=== PATIENT | female | born 1990 ===

== ENCOUNTER 2022-03-20 08:45 | Outpatient (RCR) | payer OTHER, SELFPAY ==
[2022-03-05 12:23] VITALS: BMI 22.3
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
--- NOTE | 2022-03-05 13:13 | PC.ADMIT ---
Patient is A 31 year old female who lives with her fiyasmani and her three children. She was referred to [facility] by [facility] crisis who evaluated patient after patient contacted crisis d/t increased sxs of depression with SI with multiple plans reporting thoughts to crash her car, overdose, or hang herself. Patient has no history of inpatient treatment. Patient reportedly tried to hang herself 3 months ago however stopped herself as she thought about her children. Patient reportedly moved to [place] from [facility] in May 2021 to be with her fiyasmani. Patient currently reports not having SI today. She does report having thoughts yesterday of not wanting to be here. She denied any plans to harm or kill herself. Patient reports that if she gets to that point she will reach out to crisis again. Reports protective factor are her children as she stated she does not want to do this to her children. Patient reports she needs help and that is why she is here. Patient presents with depressed mood and affect. She is alert and oriented x4. Medication reconciled with patient and patient's pharmacy. Patient is not on any psychotropic medication at this time. She has no providers.
--- NOTE | 2022-03-06 07:52 | PC.NURSE ---
case opened in treatment team
--- NOTE | 2022-03-13 11:13 | P.PNPSP_ITS ---
Subjective Subjective Date of Service: 03/13/22 Reason For Visit: unspecified depressive d/o Interim History: Patient seen in follow up Tolerating Lexapro and Seroquel. Will be one week on Lexapro Wednesday the Using Seroquel only at bedtime due to sedating effect--sleeping much better and no issues with waking in the morning Challenges related to childcare and not knowledgeable of community resources Anxiety related to not working and finances, hoping to get back to work soon Review of Systems Constitutional: Reports as per HPI and Reports no additional constitutional complaints Mental Status Exam Mental Status Exam Narrative: Well-developed, well-nourished female, in NAD. Appears stated age. No tics or tremors, no abnormal movements noted. No perceptual disturbances noted. Patient Appearance: Appropriate Patient Orientation: Person, Place, Time and Situation Level of Consciousness: Appropriate Patient Behavior: Appropriate, Cooperative and Good Eye Contact Mood Description: Depressed and Anxious Affect Description: Depressed and Anxious Patient Cognition Impaired: No Ability to Follow Directions: Good Speech Pattern: Appropriate Memory Description: Intact Hallucinations: None Delusions: Not Present Thought Process: Intact Thought Content: positive for Intact and positive for Suicidal Ideation (pasive, no intent/plan) Depressive Symptoms: Increased Anxiety, Increased Irritability, Difficulty Sleeping, Changes in Appetite (decreased), Crying Spells, Sleeping More Than Usual (Reports either sleeping too much or too little.), Loss of Int. in Activity, Hopelessness, Feelings of Guilt, Increased Fatigue, Thoughts of /Suicide and Loss of Energy Judgement: Good Diagnostics Vital Signs (24Hr): BMI result Body Mass Index 22.3 Assessment & Plan Assessment & Plan (1) Major depressive disorder, recurrent severe without psychotic features: Status: Acute Code(s): F33.2 - Major depressive disorder, recurrent severe without psychotic features Assessment and Plan: * continue medications as prescribed * encouraged to reach our to [facility] Rec dept regarding options for children over the summer * follow up PRN (2) Generalized anxiety disorder: Status: Acute Code(s): F41.1 - Generalized anxiety disorder Certification I certify that partial hospital treatment is medically necessary due to the symptoms and problems resulting from the patient's mental illness and the failure to treat the patient at the partial hospital level of care would likely result in the patient requiring inpatient psychiatric care which could not be prevented at a less intensive level of care. I spent minutes with the patient and/or on the patient floor today, greater than?50% of which was spent counseling/coordinating care. Discharge Plan Discharge Attending provider: Jimi Frost Medications: New escitalopram oxalate 10 mg tablet 10 mg PO DAILY 14 Days Qty: 14 0RF Rx Instructions: Take 1/2 tab for two days, then start one tab daily quetiapine [Seroquel] 25 mg tablet 25 mg PO BID PRN (Reason: anxiety) Qty: 28 0RF No Action albuterol sulfate 90 mcg/actuation Hfa Aerosol Inhaler 2 puff INHALATION Q4H PRN (Reason: Shortness Of Breath) Telehealth Telehealth Location of provider rendering services: practice address Location of patient: address on file Patient Identification confirmed using: Name, : Yes Telehealth method: video Patient verbally consented to treatment: Yes Patient verbally consented to billing insurance company: Yes Patient informed of any privacy concerns related to visit: Yes Minutes spent on Phone/Video with Pt.: 15
--- NOTE | 2022-03-16 14:31 | P.PNPSP_ITS ---
Subjective Subjective Date of Service: 03/16/22 Reason For Visit: unspecified depressive d/o Medical Problems Affecting Mental Status: No Interim History: Continues with some dysphoric mood, although feels she is improving. No SI, HI. No safety concerns. Finding quetiapine helpful at night. Finding groups helpful. Medication Compliance: Yes Side effects from medications: No Attending Groups: Yes Review of Systems Acute medical concerns: No Medical Review of Systems: unchanged Review of Systems Review of Systems Yes all other systems are reviewed and are negative Constitutional: Reports no additional constitutional complaints Mental Status Exam Mental Status Exam Narrative: Alert, oriented x3. NAD. Fully attentive and appropriate during encounter. Patient Appearance: Appropriate Patient Orientation: Person, Place, Time and Situation Level of Consciousness: Appropriate Patient Behavior: Appropriate, Cooperative and Good Eye Contact Mood Description: Depressed (Reports it is improving although still present.) Affect Description: Depressed Patient Cognition Impaired: No Ability to Follow Directions: Good Speech Pattern: Appropriate Memory Description: Intact Hallucinations: None Delusions: Not Present Thought Process: Intact Thought Content: positive for Intact Depressive Symptoms: Increased Anxiety, Crying Spells, Loss of Int. in Activity, Feelings of Guilt and Loss of Energy Judgement: Fair Diagnostics Vital Signs (24Hr): BMI result Body Mass Index 22.3 Assessment & Plan Assessment & Plan (1) Major depressive disorder, recurrent severe without psychotic features: Status: Acute Code(s): F33.2 - Major depressive disorder, recurrent severe without psychotic features Assessment and Plan: Reports some dysphoric mood, although overall beginning to improve. Patient states ?I am still waiting for the Lexapro to do it's thing . Denies any side effects. No SI/HI, no safety concerns. Reports she is finding groups helpful. (2) PTSD (post-traumatic stress disorder): Status: Acute Code(s): F43.10 - Post-traumatic stress disorder, unspecified (3) Cocaine use disorder, severe, in sustained remission: Status: Acute Code(s): F14.21 - Cocaine dependence, in remission Assessment and Plan: Patient attending [place] [facility] groups, finding them helpful. (4) Generalized anxiety disorder: Status: Acute Code(s): F41.1 - Generalized anxiety disorder Assessment and Plan: Patient utilizing p.r.n. quetiapine. Taking at night, as it makes her tired. Reports that her sleep is greatly improved with this, and anxiety has lessened. Patient has children in the home, as they are out of school. She does find this stressful, specially while attending [facility] program. We discussed options, she plans to go on [employer] website, regarding summer activities/camp. Plan 1. Continue with current medication regimen as prescribed. 2. Continue with current [facility] plan of care. 3. Follow-up as per protocol. Patient educated on: diagnosis, medication risk/benefits, substance abuse and therapeutic strategies Informed Consent: understands Reason for contiued partial hosp. stay Substantial Risk for: inability to function, rapid decompensation and med/psych decompensation Certification I certify that partial hospital treatment is medically necessary due to the symptoms and problems resulting from the patient's mental illness and the failure to treat the patient at the partial hospital level of care would likely result in the patient requiring inpatient psychiatric care which could not be prevented at a less intensive level of care. I spent minutes with the patient and/or on the patient floor today, greater than?50% of which was spent counseling/coordinating care. Discharge Plan Discharge Attending provider: Jimi Frost Additional Instructions: intake N 03/23/22 at 11am with Eloise Frye [facility] Medications: New escitalopram oxalate 10 mg tablet 10 mg PO DAILY 14 Days Qty: 14 0RF Rx Instructions: Take 1/2 tab for two days, then start one tab daily quetiapine [Seroquel] 25 mg tablet 25 mg PO BID PRN (Reason: anxiety) Qty: 28 0RF No Action albuterol sulfate 90 mcg/actuation Hfa Aerosol Inhaler 2 puff INHALATION Q4H PRN (Reason: Shortness Of Breath) Stand Alone Forms: Patient Portal Discharge page Telehealth Telehealth Location of provider rendering services: practice address Location of patient: address on file Patient Identification confirmed using: Name, : Yes Telehealth method: video Patient verbally consented to treatment: Yes Patient verbally consented to billing insurance company: Yes Patient informed of any privacy concerns related to visit: Yes Minutes spent on Phone/Video with Pt.: 15
--- NOTE | 2022-03-20 10:01 | PC.NURSE ---
Patient is scheduled for a routine discharge today. Stated she is feeling better, less depressed and reports being more active, taking care of house hold duties etc. Patient denied SI or thoughts to harm herself. Patient asked for help finding a PCP who takes her insurance [facility] plan. Patient stated she called all PCP's listed on the insurance website and was not able to find a PCP. I called over 20 PCP's listed on the insurance website as well and was not able to find a PCP for the patient as the majority of the PCP's offices listed stated they did not take the insurance or were not taking on new patient's. I called [facility] Financial Counselor and spoke to Dania Galan. She stated to have the patient call her and she will work with her to call [employer] and ask for a special enrollment period as patient may need to change insurance carriers if she is not able to get a PCP with her current insurance carrier. I explained the information to Maritza who was happy to get help with this process. Dania Galan number given to patient.
--- NOTE | 2022-03-20 15:00 | HO.PHPPROGNO ---
Subjective Subjective Date of Service: 03/20/22 Reason For Visit: unspecified depressive d/o Medical Problems Affecting Mental Status: No Interim History: Reports improved mood, states ?although not 100% yet ?. Continues taking prescribed medications without issue. No SI/HI, no safety concerns. Feels ready for discharge from [facility] today. Plans to return to work Wednesday. Needs [facility] paperwork completed. Medication Compliance: Yes Side effects from medications: No Attending Groups: Yes Review of Systems Acute medical concerns: No Medical Review of Systems: unchanged Review of Systems Review of Systems Yes all other systems are reviewed and are negative Constitutional: Reports no additional constitutional complaints Mental Status Exam Mental Status Exam Narrative: NAD. Fully attentive and appropriate during encounter. Patient Appearance: Well Grooomed and Appropriate Patient Orientation: Person, Place, Time and Situation Level of Consciousness: Appropriate Patient Behavior: Appropriate, Cooperative and Good Eye Contact Mood Description: Depressed (Reports depressive symptoms continue to improve.) Affect Description: Calm and Appropriate Patient Cognition Impaired: No Ability to Follow Directions: Excellent Speech Pattern: Appropriate Memory Description: Intact Hallucinations: None Delusions: Not Present Thought Process: Intact Thought Content: positive for Intact Depressive Symptoms: Increased Anxiety and Crying Spells Judgement: Good Diagnostics Vital Signs (24Hr): BMI result Body Mass Index 22.3 Assessment & Plan Assessment & Plan (1) Generalized anxiety disorder: Status: Acute Code(s): F41.1 - Generalized anxiety disorder Assessment and Plan: Continues with some anxiety at times, states some concerns about returning to work on Wednesday. Reports that although she does feel ready, she is finding it stressful to think about it. Utilizing quetiapine, finding medication helpful. (2) Major depressive disorder, recurrent severe without psychotic features: Status: Acute Code(s): F33.2 - Major depressive disorder, recurrent severe without psychotic features Assessment and Plan: Reports improved mood, states ?although not 100% yet ?. Continues taking prescribed medications without issue. No SI/HI, no safety concerns. Feels ready for discharge from [facility] today. (3) PTSD (post-traumatic stress disorder): Status: Acute Code(s): F43.10 - Post-traumatic stress disorder, unspecified Assessment and Plan: Feels symptoms are improving. Finding quetiapine helpful, especially at night. (4) Cocaine use disorder, severe, in sustained remission: Status: Acute Code(s): F14.21 - Cocaine dependence, in remission Assessment and Plan: Continues in sustained remission, no issues/concerns at this time. Plan 1. Complete FMLA paperwork an e-mail to patient. 2. Continue with current medication regimen, scripts have been sent to pharmacy earlier in week. 3. Patient appears stable for discharge from [facility] at this time. Patient educated on: diagnosis, medication risk/benefits, substance abuse and therapeutic strategies Informed Consent: understands Reason for contiued partial hosp. stay Substantial Risk for: stable for discharge Certification I certify that partial hospital treatment is medically necessary due to the symptoms and problems resulting from the patient's mental illness and the failure to treat the patient at the partial hospital level of care would likely result in the patient requiring inpatient psychiatric care which could not be prevented at a less intensive level of care. I spent minutes with the patient and/or on the patient floor today, greater than?50% of which was spent counseling/coordinating care. Discharge Plan Discharge Attending provider: Jimi Frost Additional Instructions: intake N 03/23/22 at 11am with Eloise Frye [facility] Medications: New escitalopram oxalate 10 mg tablet 10 mg PO DAILY 30 Days Qty: 30 1RF quetiapine 25 mg tablet 25 mg PO BID PRN (Reason: anxiety) Qty: 30 1RF No Action albuterol sulfate 90 mcg/actuation Hfa Aerosol Inhaler 2 puff INHALATION Q4H PRN (Reason: Shortness Of Breath) Stand Alone Forms: Patient Portal Discharge page Patient Education: Quetiapine (By mouth), Escitalopram (By mouth), Depression (DC) Telehealth Telehealth Location of provider rendering services: practice address Location of patient: address on file Patient Identification confirmed using: Name, : Yes Telehealth method: video Patient verbally consented to treatment: Yes Patient verbally consented to billing insurance company: Yes Patient informed of any privacy concerns related to visit: Yes Minutes spent on Phone/Video with Pt.: 15
== END 2022-03-20 23:59 | disposition home or self-care (01) ==
LOC: HO.PHPA 08:45
PROVIDERS: Visit Provider Psychiatry & Neurology Psychiatry
DX: F33.2 Major depressive disorder, recurrent severe without psychotic features (principal); F43.10 Post-traumatic stress disorder, unspecified; F41.1 Generalized anxiety disorder; F14.21 Cocaine dependence, in remission; Z79.899 Other long term (current) drug therapy
CPT/HCPCS: 90791; 90853